=== PATIENT | male | born 1955 | race Caucasian/White ===

== ENCOUNTER 2024-07-07 08:07 | Inpatient (IN) ==
--- NOTE | 2024-06-23 12:22 | PAT Medication Instructions ---
Medication Instructions Date of Service June 23, 2024 Home Medications albuterol sulfate 90 mcg/actuation aerosol inhaler (Ventolin HFA) 2 puff inhalation QID PRN sob amiodarone 100 mg tablet 100 mg PO QAM apixaban 5 mg tablet (Eliquis) 5 mg PO BID atorvastatin 40 mg tablet 40 mg PO HS dapagliflozin propanediol 10 mg tablet (Farxiga) 10 mg PO QAM furosemide 20 mg tablet 20 mg PO BID PRN swelling metoprolol tartrate 25 mg tablet 25 mg PO QAM naloxegol 25 mg tablet (Movantik) 25 mg PO QAM oxycodone 15 mg tablet 15 mg PO QID PRN Pain potassium 20 mg chewable tablet 20 mg PO DAILY sacubitril 24 mg-valsartan 26 mg tablet (Entresto) 1 tab PO BID tamsulosin 0.4 mg capsule 0.4 mg PO HS MEDICATION INSTRUCTIONS: Continue as directed albuterol sulfate 90 mcg/actuation aerosol inhaler (Ventolin HFA) 2 puff inhalation QID PRN sob (use if needed; BRING TO HOSPITAL) ASK your prescriber and surgeon apixaban 5 mg tablet (Eliquis) 5 mg PO BID DO NOT take the morning of surgery potassium 20 mg chewable tablet 20 mg PO DAILY naloxegol 25 mg tablet (Movantik) 25 mg PO QAM furosemide 20 mg tablet 20 mg PO BID PRN swelling sacubitril 24 mg-valsartan 26 mg tablet (Entresto) 1 tab PO BID Take morning of surgery With a small sip of water, OTHERWISE NOTHING TO EAT OR DRINK AFTER MIDNIGHT: metoprolol tartrate 25 mg tablet 25 mg PO QAM amiodarone 100 mg tablet 100 mg PO QAM oxycodone 15 mg tablet 15 mg PO QID PRN Pain Take evening before surgery atorvastatin 40 mg tablet 40 mg PO HS tamsulosin 0.4 mg capsule 0.4 mg PO HS furosemide 20 mg tablet 20 mg PO BID PRN swelling oxycodone 15 mg tablet 15 mg PO QID PRN Pain Other Notes STOP taking 3 days before surgery: dapagliflozin propanediol 10 mg tablet (Farxiga) 10 mg PO QAM If you have any questions please call us at [phone] or [phone] or [phone] or [phone]
--- NOTE | 2024-06-29 14:28 | Anesthesiology Consultation ---
Date of Service June 29, 2024 Assessment & Plan (1) Encounter for pre-operative examination: - check BSG am DOS. - cardiology pre-operative evaluation 06/07/24: "...preoperative cardiac clearance...intermediate cardiovascular risk surgery...echocardiogram 04/09/23 > EF 35-40%...based on history, physical examination and the above information do not recommend further invasive or noninvasive cardiovascular testing or procedures prior to proceeding with planned lumbar surgery...optimized from a cardiac standpoint to proceed with his scheduled procedure..." - Case discussed in detail with Dr. Renee who advised that given above available information patient is at increased risk but if he is cleared by cardiology and patient is accepting of that risk he can proceed as planned at [facility]. Final discussion to anesthesiologist farrah TOLEDO. - long casas: Patient was advised on shaving facial hair. He is not agreeable to this but is agreeable to trim facial hair closely and cut casas very short. He is aware final determination on this will be to anesthesiologist farrah TOLEDO. Chart Review Chart Review: Acceptable Risk for Surgery and Patient seen in Pre Admission Testing Teaching & Discussion Pre-Anesthesia Teaching/Discussion Notes: Instructed NPO after midnight before surgery, except medications with 15 cc of water. Medication instructions provided according to the PAT guidelines. History Surgery Operation Date: 07/07/24 10:05 Proposed Procedures p L2 to S1 Revision Decompression and Fusion - Kenneth Melara DO Height/Weight Height: 6 ft Weight: 127.7 kg Allergies Allergy/AdvReac Type Severity Reaction Status Date / Time acetaminophen [From Tylenol] Allergy Unknown Rash Verified 06/15/24 13:02 morphine Allergy Unknown Rash Verified 06/15/24 13:02 Medications Home Medications Medication Instructions Recorded Confirmed Last Taken albuterol sulfate 90 mcg/actuation 2 puff inhalation QID PRN sob 06/15/24 06/15/24 Unknown aerosol inhaler (Ventolin HFA) amiodarone 100 mg tablet 100 mg PO QAM 06/15/24 06/15/24 Unknown apixaban 5 mg tablet (Eliquis) 5 mg PO BID 06/15/24 06/15/24 Unknown atorvastatin 40 mg tablet 40 mg PO HS 06/15/24 06/15/24 Unknown dapagliflozin propanediol 10 mg 10 mg PO QAM 06/15/24 06/15/24 Unknown tablet (Farxiga) furosemide 20 mg tablet 20 mg PO BID PRN swelling 06/15/24 06/15/24 Unknown metoprolol tartrate 25 mg tablet 25 mg PO QAM 06/15/24 06/15/24 Unknown naloxegol 25 mg tablet (Movantik) 25 mg PO QAM 06/15/24 06/15/24 Unknown oxycodone 15 mg tablet 15 mg PO QID PRN Pain 06/15/24 06/15/24 Unknown potassium 20 mg chewable tablet 20 mg PO DAILY 06/15/24 06/15/24 Unknown sacubitril 24 mg-valsartan 26 mg 1 tab PO BID 06/15/24 06/15/24 Unknown tablet (Entresto) tamsulosin 0.4 mg capsule 0.4 mg PO HS 06/15/24 06/15/24 Unknown Past Medical History Medical History (Updated 06/30/24 @ 14:28 by Maegan Lackey PA-C) CAD (coronary artery disease) (~2022) 1 stent, please see 11/17/22 cardiac catheterization report Chronic back pain COPD (chronic obstructive pulmonary disease) states mild; denies using inhalers Diabetes NIDDM Dyslipidemia Heart failure EF 35% HTN (hypertension) controlled, stable per pt Hx of reduction of orbital fracture metal sutures holding orbital bone Poor historian states all information sent to Dr Coulter office Patient denies h/o stroke, seizures, heart attack, heart failure, blood clots/DVTs or blood transfusions. Exercise / Class Metabolic Activity III < 4 Walking/Shop/Light housework (denies chest discomfort or shortness of breath with usual activities) Past Surgical History Surgical History H/O heart artery stent (11/26/22) History of lumbar surgery Hx of cardiac catheterization (11/26/22) SOB x 1 stent JACOB manzanares w/ Dr Luu Hx of cervical spine surgery full ROM Hx of hernia repair Past Anesthesia History No Hx of Anesthesia Complications and No Family Hx of Anesthesia Complications History of PONV No Hx of PONV and No Hx of Motion Sickness Social History Smoking Status: Former smoker Do You Dip or Chew Tobacco: No Smoking End Date: quit 04/2024 Hx Alcohol Use: No Hx Substance Use: No substance use type: does not use Review of Systems Patient denies chest pain, shortness of breath, dyspnea on exertion, snoring, witnessed apneas, reflux, fever, chills, cough, wheezing, or palpitations. Physical Exam Vital Signs Vitals BP 123/82 P 70 TEMP 97.7 SP02 94% on RA RESP 18 Physical Patient resting comfortably in chair in no acute distress, alert and oriented, responding appropriately throughout visit Full cervical extension range of motion without pain TMD 3.5 finger breadths Mallampati Score 3 Dentition: intact, denies chipped or loose teeth, caps/crowns, implants or bridges Lungs: normal respiratory effort. Good air movement, clear throughout to auscultation, no adventitious breath sounds Cardiac: regular rate and rhythm, no murmurs noted Carotid arteries: negative bruit bilat Lab Results Anesthesia Preop Results Results Anesthesia Widget: PT 10.2 Seconds (9.0-12.0) 06/29/24 PTT 31 Seconds (21-31) 06/29/24 INR 0.9 (0.9-1.1) 06/29/24 Urine Color Yellow 06/29/24 Urine Appearance Clear (Clear) 06/29/24 Urine pH 5.5 (4.5-7.5) 06/29/24 Urine Specific [place] 1.030 (1.000-1.030) 06/29/24 Urine Protein Negative (Negative) 06/29/24 Urine Glucose (UA) 3+ (Negative) H 06/29/24 Urine Ketones Negative (Negative) 06/29/24 Urine Blood Negative (Negative) 06/29/24 Urine Nitrite Negative (Negative) 06/29/24 Urine Bilirubin Negative (Negative) 06/29/24 Urine Urobilinogen Negative (Negative) 06/29/24 Urine Leukocyte Esterase Negative (Negative) 06/29/24 Blood Type A Positive 06/29/24 Antibody Screen NEGATIVE 06/29/24 Testing Laboratory Results 05/08/24 WBC: 11.5 H/H: 14/46 PLATELETS: 240,000 SODIUM: 136 POTASSIUM: 3.7 CHLORIDE: 101 CO2: 29 BUN: 11 CREATININE: 0.9 GLUCOSE: 104 A1c: 5.9% Electrocardiogram Date: 06/29/24 NSR with sinus arrhythmia, rate 61 bpm Chest X-Ray Date: 06/29/24 No acute cardiopulmonary findings. Cardiomegaly. Echocardiogram Date: 04/09/23 EF 35-40% Global hypokinesis Mildly dilated LA Mild mitral regurgitation Mild tricuspid regurgitation Cardiac Catheterization Date: 11/17/22 Severe LV systolic dysfunction EF 20% Multivessel CAD LAD proximal 70% LCx proximal 60%, distal 80% RCA proximal 90% [place] revascularization strategy would be CABG, however the patient would be a poor candidate for this operation given chronic back pain, opiate dependence and difficulty with compliance
[2024-07-07] MEDS: LR 15ML/HR IV SCH (09:13)
[2024-07-07] MEDS: LR 60ML/HR IV SCH (09:13)
[2024-07-07] MEDS: CeleBREX 200 MG CAP PO SCH (09:14)
[2024-07-07] MEDS: GABAPENTIN 300 MG CAP PO SCH (09:14)
[2024-07-07] MEDS ORDERED: LIDOCAINE 2% 2 ML VIAL/AMP(20MG/ML) INFIL ONE (09:40)
[2024-07-07] MEDS ORDERED: PROPOFOL IV EMULSION 10 MG/ML 20 ML VIAL IV ONE (09:40)
[2024-07-07] MEDS ORDERED: MIDAZOLAM HCL 1 MG/ML 2ML VIAL ONE (09:40)
[2024-07-07] MEDS ORDERED: fentaNYL citrate PF 100 MCG/2 ML VIAL ONE ×2 (09:40→11:39)
[2024-07-07] MEDS ORDERED: ROCURONIUM BROMIDE 10 MG/ML 5 ML VIAL IV ONE ×4 (09:42→13:49)
[2024-07-07] MEDS ORDERED: ONDANSETRON INJ 2 MG/ML 2 ML VIAL ONE (09:42)
--- NOTE | 2024-07-07 10:11 | History & Physical Bridge Note ---
Date of Service July 07, 2024 History & Physical Bridge Note I have examined the patient, reviewed the History & Physical and in the interval since the performance of the History & Physical I have noted the following changes of clinical significance: no changes noted
--- NOTE | 2024-07-07 10:13 | History & Physical Report ---
Date of Service July 07, 2024 Assessment & Plan (1) Neurogenic claudication due to lumbar spinal stenosis: Plan: L2-S1 revision decompression and fusion History of Present Illness Chief Complaint: Back and bilateral leg pain Primary Care Provider: Karly Garg DO This is a 69-year-old male presents for chronic persistent back and bilateral leg pain after failing course of nonoperative care is here for surgical invention. Allergies Allergy/AdvReac Type Severity Reaction Status Date / Time acetaminophen [From Tylenol] Allergy Unknown Rash Verified 07/07/24 08:44 morphine Allergy Unknown Rash Verified 07/07/24 08:44 Home Medications Medication Instructions Recorded Confirmed Type albuterol sulfate 90 mcg/actuation 2 puff inhalation QID PRN sob 06/15/24 07/07/24 History aerosol inhaler (Ventolin HFA) amiodarone 100 mg tablet 100 mg PO QAM 06/15/24 07/07/24 History apixaban 5 mg tablet (Eliquis) 5 mg PO BID 06/15/24 07/07/24 History atorvastatin 40 mg tablet 40 mg PO HS 06/15/24 07/07/24 History dapagliflozin propanediol 10 mg 10 mg PO QAM 06/15/24 07/07/24 History tablet (Farxiga) furosemide 20 mg tablet 20 mg PO BID PRN swelling 06/15/24 07/07/24 History metoprolol tartrate 25 mg tablet 25 mg PO QAM 06/15/24 07/07/24 History naloxegol 25 mg tablet (Movantik) 25 mg PO QAM 06/15/24 07/07/24 History oxycodone 15 mg tablet 15 mg PO QID PRN Pain 06/15/24 07/07/24 History potassium 20 mg chewable tablet 20 mg PO DAILY 06/15/24 07/07/24 History sacubitril 24 mg-valsartan 26 mg 1 tab PO BID 06/15/24 07/07/24 History tablet (Entresto) tamsulosin 0.4 mg capsule 0.4 mg PO HS 06/15/24 07/07/24 History Past Med/Surg History Problem List (Updated 07/07/24 @ 10:13 by Kenneth Melara DO) Neurogenic claudication due to lumbar spinal stenosis Encounter for pre-operative examination Medical History (Updated 07/07/24 @ 10:13 by Kenneth Melara, DO) Heart failure EF 35% CAD (coronary artery disease) (~2022) 1 stent, please see 11/17/22 cardiac catheterization report Chronic back pain COPD (chronic obstructive pulmonary disease) states mild; denies using inhalers Poor historian states all information sent to Dr Coulter office Dyslipidemia HTN (hypertension) controlled, stable per pt Diabetes NIDDM Hx of reduction of orbital fracture metal sutures holding orbital bone Surgical History H/O heart artery stent (11/26/22) Hx of cardiac catheterization (11/26/22) SOB x 1 stent PH P[facility] - [place] w/ Dr Luu Hx of hernia repair Hx of cervical spine surgery full ROM History of lumbar surgery Social History Smoking Status: Former smoker Tobacco Type: Cigarettes Smoking End Date: quit 04/2024; Second Hand Exposure: No; Do You Dip or Chew Tobacco: No; Tobacco Cessation Education Requested by Patient: No Hx Alcohol Use: No Hx Substance Use: No Preferred Language: Urdu Communication Ability: Effective Mica Washer Gluer Required: No Beliefs That Will Affect Care: None Current Living Situation: Alone Other Information That Helps Us Care for You: No Feels Safe at Home: Yes Safety Concerns: Feels Safe At This Time Assistive Devices: Glasses and Walker Physical Exam Physical Exam: Patient is alert and oriented Heart regular in rhythm Lungs clear Results & Data Results & Data Vital Signs (Past 12 Hours) Vital Signs Temp Pulse Resp BP Pulse Ox O2 Del Method 07/07/24 08:52 36.4 C L 63 20 153/97 H 95 Room Air
[2024-07-07] MEDS: ceFAZolin 3000MG 3,000 MG/72.5 ML BAG IV SCH (10:46)
[2024-07-07] MEDS ORDERED: DEXAMETHASONE SOD INJ 4 MG/ML VIAL ONE (11:03)
[2024-07-07] MEDS: BUPIVACAINE/EPINEPHRINE 0.25% 1:200,000 30 ML VIAL ONE (11:31)
[2024-07-07] MEDS: ceFAZolin 330 MG/ML 1 GM VIAL ONE (11:31)
[2024-07-07] MEDS: FLOSEAL HEMOSTATIC MATRIX 10ML TOP ONE (14:11)
[2024-07-07] MEDS ORDERED: SUGAMMADEX SODIUM 200 MG/2 ML VIAL IV ONE ×2 (14:14→14:23)
--- NOTE | 2024-07-07 14:33 | Operative Report ---
Post Operative Report Pre & Post Diagnosis Operation Date: 07/07/24 10:05 Pre-Op Diagnosis: Lumbar spinal stenosis with neurogenic claudication and radiculopathy Morbid obesity Post-Op Diagnosis: Same I identified the patient and participated in the time-out.: Yes Procedure Operation Date: 07/07/24 10:05 Actual Procedures #1 revision decompression with bilateral medial facetectomies and foraminotomies L3 3 L4 L4-L5 L5-S1. #2 posterior spinal fusion L2-S1. #3 placed posterior segmental instrumentation L2-S1. #4 interbody fusion L3-L4, L4-L5 and L5-S1. #5 placement of Spira 13 x 26 mm at L3-L4 14 x 26 mm at L4-5 and 12 x 26 mm at L5-S1. #6 placement locally harvested morselized autograft in the posterior gutters per #7 placement infuse collagen sponge combined with Koros in the posterior lateral gutters and os design interbody space. #8 application of versa wrap over the exposed dura. Surgeon Kenneth Melara, DO [employer] Sales Representative Vel Hart Estimated Blood Loss 950 Findings See Below The patient is 6 foot tall weighing over 120 kg with a BMI in excess of 38. Patient's body habitus did create significant technical difficulty with positioning exposure and the procedure itself. This combined with an EBL of greater than 950 cc would justify a modifier 22. Specimens None Indications This is a 69-year-old male presents above-mentioned diagnosis after failing course of nonoperative care is here for surgical invention. Description of Procedure Patient was met with identified informed consent obtained. Patient was then taken to the operative suite underwent intubation placed in a prone position on the Akbar table on top of the Carlos frame. All bony prominences well-padded eyes inspected to ensure no external precipice upon them. This point the lumbar spine was prepped and draped in a sterile fashion. Sharp dissection with assistance bradycardia form down to and exposing the remaining lamina transverse processes of L2 L3-L4-L5 and sacral ala bilaterally. Then performed a revision bilateral medial facetectomies and foraminotomies at L5-S1 addressing severe spinal stenosis. Then a prone approach to L for L5 then performed a revision bilateral medial facetectomies and foraminotomies and lastly L3-L4 bilateral medial facetectomies and foraminotomies addressing severe subarticular and foraminal disease. Pedicle screws were then placed at L2 L3-L4-L5 and S1 levels bilaterally with assistance of fluoroscopy. By way of transforaminal approach on the left complete discectomy of L5-S1 was performed endplates guarded to subcortical bleeding bone and the 12 x 26 mm spiral cage filled with os design tapped in position. Then proceeded to L4-L5. By way of transforaminal approach on the left complete discectomy performed endplates guided to subcortical mean bone and a 14 x 26 mm Spira cage filled with os designed tapped into position. Lastly I approached L3-L4 by way of transforaminal approach on the left. A complete discectomy was performed endplates. To subcortical mean bone and a 13 x 26 mm Spira cage filled with os design tapped into position. The rods then compressed locked into final position bilaterally. The transverse processes of L2-L3 L4-5 and the sacral ala burred to subcortical bleeding bone. Infuse collagen sponge combined with Koros and local autograft placed in the posterior lateral gutters. Versa wrap was placed over the exposed dura. 15 round FRANCO drain inserted. Incision then closed with 1 Vicryl fascia 2-0 Vicryl subcutaneously and 4 Monocryl for final skin closure. Steri-Strips sterile dressing placed. Patient waken taken to PACU stable condition. Please note Vel Hart was present at the entire procedure and while the patient positioning complex portions of the surgery and final skin closure. Im ordering 20 grams of Triple Liberty Collagen Powder ([employer] [id number]) to treat an incision wound that was caused by a spine procedure. The incision is approximately 2 cm(W) x 4 cm(L) into the joint (D) in size and is a full thickness wound. Triple Liberty collagen comes in 1 gram packets so 20 packets were ordered. Given the size of the wound, with light to moderate exudate I chose to order a 20 day supply. The patient will be provided instructions for proper application of the collagen wound kit. The patient will be asked to apply the collagen powder daily and then cover it with sterile dressings dispensed. Collagen was selected as I expect the collagen to attract monocytes and fibroblasts, act as a sacrificial substrate for MMPs, and ultimately proved a matrix for tissue and vessel growth. The collagen will act as a primary dressing in this scenario. It is medically necessary for proper healing of these wounds to improve bioavailability and contact with each wound surface, this is also to help prevent infection of wounds and promote healing ultimately leading to a better healing outcome and limit the risk of infection. I attest to the content of the Intraoperative Record and any orders documented therein. Any exceptions are noted below.
--- NOTE | 2024-07-07 14:47 | Fluoroscopy Report ---
FL lumbar spine 2-3V CLINICAL HISTORY: L2-S1 DECOMPRESSION AND FUSION COMPARISON STUDY: None FLUOROSCOPY TIME: 41.2 seconds FLUOROSCOPY IMAGES: 4 EXPOSURE DOSE: 34.08 mGy FINDINGS: Laminectomy and posterior interbody katarzyna and screw fusion hardware is noted at what appears to be the L2-S1 levels. The visualized hardware appears intact. IMPRESSION: Fluoroscopic assistance as above. ACT 112: Negative or not required by law. Electronically signed by: Nakul Hutton M.D. 07/07/2024 2:46 PM
[2024-07-07] MEDS ORDERED: LABETALOL HCL IV 5 MG/ML 20ML IV PRN (15:06)
[2024-07-07] MEDS ORDERED: ATROPINE SULFATE 0.1 MG/ML 10ML SYR IV PRN (15:06)
[2024-07-07] MEDS ORDERED: ONDANSETRON INJ 2 MG/ML 2 ML VIAL IV PRN ×2 (15:06→16:46)
[2024-07-07] MEDS ORDERED: PROMETHAZINE HCL 6.25 MG in SODIUM CHLORIDE 0.9% 50 ML IV PRN (15:06)
[2024-07-07] MEDS: HYDROmorphone INJ 1 MG/ML SYRINGE IV PRN ×2 (15:11→17:22)
[2024-07-07] MEDS: fentaNYL citrate PF 100 MCG/2 ML VIAL ONE (15:14)
[2024-07-07] MEDS: HYDROmorphone INJ 1 MG/ML SYRINGE ONE (15:18)
[2024-07-07] MEDS: HYDROmorphone INJ 0.5 MG/0.5 ML SYR IV PRN (15:31)
[2024-07-07] MEDS: HYDROmorphone INJ 2 MG/ML SYR/VIAL ONE (15:33)
[2024-07-07] MEDS: HYDROmorphone INJ 0.5 MG/0.5 ML SYR IV STA (15:35)
[2024-07-07] MEDS ORDERED: ALUMINUM/MAGNESIUM SUSP 30 ML UDC PO PRN (16:46)
[2024-07-07] MEDS ORDERED: ALBUTEROL HFA 8 GM INHALER INH PRN (16:46)
[2024-07-07] MEDS ORDERED: METOCLOPRAMIDE HCL INJ 5 MG/ML 2 ML VIAL IV PRN (16:46)
[2024-07-07] MEDS ORDERED: diphenhydrAMINE Capsule 25 MG CAP PO PRN (16:46)
[2024-07-07] MEDS ORDERED: DO NOT ADMINISTER PNEUMOCOCCAL VACCINE PRN (16:46)
[2024-07-07] MEDS ORDERED: LORazepam 2 MG/1 ML VIAL IV PRN (16:46)
[2024-07-07] MEDS ORDERED: hydrOXYzine HCl 25 MG TAB PO PRN (16:46)
[2024-07-07] MEDS ORDERED: DO NOT ADMINISTER FLU VACCINE PRN (16:46)
[2024-07-07] MEDS ORDERED: ONDANSETRON 4 MG OD TAB PO PRN (16:46)
[2024-07-07] MEDS ORDERED: SOD PHOSPHATE/SOD BIPHOSPHATE ENEMA 132 ML BTL PR PRN (16:46)
[2024-07-07] MEDS ORDERED: bisacodyL 10 MG SUPP PR PRN (16:46)
[2024-07-07] MEDS ORDERED: PROMETHAZINE 12.5 MG/50.5 ML BAG IV PRN (16:46)
[2024-07-07] MEDS ORDERED: MAGNESIUM HYDROXIDE SUSP 30 ML UDC PO PRN (16:46)
[2024-07-07] MEDS ORDERED: NALOXONE HCL 0.4 MG/1 ML VIAL/CARP IV PRN (16:46)
--- NOTE | 2024-07-07 16:54 | Anesthesiology Progress Note ---
Date of Service July 07, 2024 Anesthesia Post Procedure Vital Signs Vital Signs: Temp Pulse Pulse Resp BP Pulse Ox O2 Del Method 07/07/24 16:49 36.6 C 75 18 109/66 95 Nasal Cannula 07/07/24 16:25 76 19 105/58 L 92 Nasal Cannula 07/07/24 16:15 37 C 72 22 105/63 95 Nasal Cannula 07/07/24 16:05 75 20 104/60 93 Nasal Cannula 07/07/24 15:55 78 24 95 Oxymask 07/07/24 15:45 73 23 117/70 93 Oxymask 07/07/24 15:35 75 21 104/39 L 96 Oxymask 07/07/24 15:25 76 16 158/91 H 98 Oxymask 07/07/24 15:15 78 20 167/100 H 98 Oxymask 07/07/24 15:05 82 23 144/93 H 96 Oxymask 07/07/24 14:55 36.1 C L 75 24 145/104 H 95 Oxymask 07/07/24 08:52 36.4 C L 63 20 153/97 H 95 Room Air O2 Flow Rate 07/07/24 16:49 2 07/07/24 16:25 3 07/07/24 16:15 3 07/07/24 16:05 3 07/07/24 15:55 5 07/07/24 15:45 5 07/07/24 15:35 10 07/07/24 15:25 10 07/07/24 15:15 10 07/07/24 15:05 10 07/07/24 14:55 10 07/07/24 08:52 Pain Intensity Back: Pain Intensity: 6 Transfer of Care Handoff Completed per policy Notes Mental Status: alert / awake / arousable Patient Amnestic to Procedure: Yes Nausea / Vomiting: adequately controlled Pain: adequately controlled Airway Patency, RR, SpO2: stable & adequate BP & HR: stable & adequate Hydration State: stable & adequate Anesthetic Complications: no major complications apparent
[2024-07-07] MEDS: LACTATED RINGER'S 1,000 ML IV SCH (17:24)
--- NOTE | 2024-07-07 17:29 | Hospitalist Consultation ---
Date of Consultation July 07, 2024 Assessment & Plan (1) S/P spinal surgery: This is a 69yo M with a PMH of HFrEF (EF 35-40% per 03/2023 echo), paroxysmal atrial fibrillation on Eliquis, CAD status post proximal RCA stent, HTN, BPH and other medical problems listed below who is POD #0 s/p revision decompression and posterior spinal fusion L3-S1 by Dr. Melara. POD #0 s/p #1 revision decompression with bilateral medial facetectomies and foraminotomies L3 3 L4 L4-L5 L5-S1. #2 posterior spinal fusion L2-S1. #3 placed posterior segmental instrumentation L2-S1. #4 interbody fusion L3-L4, L4-L5 and L5-S1. #5 placement of Spira 13 x 26 mm at L3-L4 14 x 26 mm at L4-5 and 12 x 26 mm at L5-S1. #6 placement locally harvested morselized autograft in the posterior gutters per #7 placement infuse collagen sponge combined with Koros in the posterior lateral gutters and os design interbody space. #8 application of versa wrap over the exposed dura by Dr. Melara Per ortho for pain control, wound care, anticoagulation and activities Monitor H&H - no pre-op labs available on EMR, will obtain H&H now given EBL 950 ml Continue incentive spirometry, PT/OT when appropriate Daily CBC (2) HFrEF (heart failure with reduced ejection fraction): Follows with [facility], seen for cardiac clearance Last 2D echo from March 2023 with EF 35-40% Monitor fluid status carefully, reduced fluid rate Continue Lopressor, Entresto Hold AM lasix until volume status reassessed tomorrow (3) Paroxysmal atrial fibrillation: Continue Lopressor, amiodarone Held Eliquis 72 hrs pre-op Resume as soon as advised in post op setting at discretion of surgeon (4) CAD (coronary artery disease): H/o Prox RCA stent in 10/2022 Stable, no CP Continue beta sandoval, statin (5) DM (diabetes mellitus), type 2: A1c unknown, ordered with AM labs Hold home agents SSI while in-patient BSG AC HS (6) HTN (hypertension): Normotensive. Continue home Entresto, Lopressor (7) BPH (benign prostatic hyperplasia): Continue tamsulosin (8) Dyslipidemia: Continue statin DVT Ppx: SCDs for now Code status: FULL PCP: [facility] ([facility]) Dispo: Per primary service Patient seen in collaboration with Dr. Frederick. Please see addendum. I spent a total of 60 minutes coordinating, documenting, and providing care for this patient excluding time spent in the performance of separately billed services. Thank you for this consultation. We will follow the patient with you during their hospital stay. You can reach a member of the [facility] 10/05 via [employer]. Supervising Physician Co-Signing Physician Notes Pt was seen and examined by myself, Nikki Frederick MD on the day of service. Care was coordinated with Kasey Moreland PA-C. Patient was seen postop pain 12/18 bed 1. He is status post L2-S1 revision decompression and fusion for neurogenic claudication due to lumbar spinal stenosis. On exam patient states that he is in pain, asking for pain meds. Laying on his right side, difficulty with movements at the time of the exam. Denied any dizziness or shortness of breath. Just reiterating that he is in pain. Noted EBL of 950 mL, baseline hemoglobin ordered today, follow-up with a.m. CBC Otherwise as above. I spent a total [id number] coordinating, documenting, and providing care for this patient excluding time spent in the performance of separately billed services History of Present Illness Reason for Consultation: post op med mgmt Attending Physician: Kenneth Melara, DO History of Present Illness This is a 69yo M with a PMH of HFrEF (EF 35-40% per 03/2023 echo), paroxysmal atrial fibrillation on Eliquis, DM II, CAD status post proximal RCA stent, HTN, BPH and other medical problems listed below who is POD #0 s/p revision decompression and posterior spinal fusion L3-S1. Patient examined in postoperative setting in room 303. Has some surgical site pain but improved after recent pain medication. Denies any pain or paresthesias in bilateral lower extremities. No fever, chills, lightheadedness, headache. No chest pain, palpitations, shortness of breath. No nausea, vomiting, abdominal pain, dysuria, diarrhea or constipation. 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 Patient is a poor historian, so history also obtained from chart review. Is on Eliquis for a fib history and has been holding since Wednesday. Allergies Allergy/AdvReac Type Severity Reaction Status Date / Time acetaminophen [From Tylenol] Allergy Unknown Rash Verified 07/07/24 08:44 morphine Allergy Unknown Rash Verified 07/07/24 08:44 Home Medications Medication Instructions Recorded Confirmed Type albuterol sulfate 90 mcg/actuation 2 puff inhalation QID PRN sob 06/15/24 07/07/24 History aerosol inhaler (Ventolin HFA) amiodarone 100 mg tablet 100 mg PO QAM 06/15/24 07/07/24 History apixaban 5 mg tablet (Eliquis) 5 mg PO BID 06/15/24 07/07/24 History atorvastatin 40 mg tablet 40 mg PO HS 06/15/24 07/07/24 History dapagliflozin propanediol 10 mg 10 mg PO QAM 06/15/24 07/07/24 History tablet (Farxiga) furosemide 20 mg tablet 40 mg PO DAILY 06/15/24 07/07/24 History metoprolol tartrate 25 mg tablet 25 mg PO QAM 06/15/24 07/07/24 History naloxegol 25 mg tablet (Movantik) 25 mg PO QAM 06/15/24 07/07/24 History oxycodone 15 mg tablet 15 mg PO QID PRN Pain 06/15/24 07/07/24 History potassium 20 mg chewable tablet 20 mg PO DAILY 06/15/24 07/07/24 History sacubitril 24 mg-valsartan 26 mg 1 tab PO BID 06/15/24 07/07/24 History tablet (Entresto) tamsulosin 0.4 mg capsule 0.4 mg PO HS 06/15/24 07/07/24 History Patient History Medical History (Updated 07/07/24 @ 18:03 by Kasey Moreland PA-C) BPH (benign prostatic hyperplasia) Paroxysmal atrial fibrillation DM (diabetes mellitus), type 2 HFrEF (heart failure with reduced ejection fraction) CAD (coronary artery disease) (~2022) 1 stent, please see 11/17/22 cardiac catheterization report Chronic back pain COPD (chronic obstructive pulmonary disease) states mild; denies using inhalers Poor historian states all information sent to Dr Coulter office Dyslipidemia HTN (hypertension) controlled, stable per pt Hx of reduction of orbital fracture metal sutures holding orbital bone Surgical History H/O heart artery stent (11/26/22) Hx of cardiac catheterization (11/26/22) SOB x 1 stent PH [facility] w/ Dr Luu Hx of hernia repair Hx of cervical spine surgery full ROM History of lumbar surgery Family History Other Heart disease Social History Smoking Status: Never smoker Tobacco Type: Cigarettes Smoking End Date: quit 04/2024; Second Hand Exposure: No; Do You Dip or Chew Tobacco: No; Tobacco Cessation Education Requested by Patient: No Hx Alcohol Use: No Hx Substance Use: No Preferred Language: Frisian Communication Ability: Effective House Coordinator Required: No Beliefs That Will Affect Care: None Current Living Situation: Alone Other Information That Helps Us Care for You: No Feels Safe at Home: Yes Safety Concerns: Feels Safe At This Time Assistive Devices: Walker Review of Systems Review of Systems: At least ten systems reviewed and negative except as noted in the HPI. Physical Exam Physical Exam: Gen: WD/WN, NAD, laying in bed, A&Ox3, morbidly obese HEENT: Normocephalic, atraumatic, mucous membranes moist Lung: Clear to Auscultation bilaterally Heart: Regular rate, regular rhythm Abdomen: Soft, NT, ND +BS x 4 Extremities: + Spinal dressing c/d/i, + drain, no BLE edema, BLE strength 5/5 : + Bolanos Skin: Warm, no rash Results & Data Results & Data Vital Signs (Past 12 Hours) Vital Signs Temp Pulse Pulse Resp BP Pulse Ox O2 Del Method 07/07/24 16:49 36.6 C 75 18 109/66 95 Nasal Cannula 07/07/24 16:40 36.6 C 75 18 109/66 95 Room Air 07/07/24 16:25 76 19 105/58 L 92 Nasal Cannula 07/07/24 16:15 37 C 72 22 105/63 95 Nasal Cannula 07/07/24 16:05 75 20 104/60 93 Nasal Cannula 07/07/24 15:55 78 24 95 Oxymask 07/07/24 15:45 73 23 117/70 93 Oxymask 07/07/24 15:35 75 21 104/39 L 96 Oxymask 07/07/24 15:25 76 16 158/91 H 98 Oxymask 07/07/24 15:15 78 20 167/100 H 98 Oxymask 07/07/24 15:05 82 23 144/93 H 96 Oxymask 07/07/24 14:55 36.1 C L 75 24 145/104 H 95 Oxymask 07/07/24 08:52 36.4 C L 63 20 153/97 H 95 Room Air O2 Flow Rate 07/07/24 16:49 2 07/07/24 16:40 07/07/24 16:25 3 07/07/24 16:15 3 07/07/24 16:05 3 07/07/24 15:55 5 07/07/24 15:45 5 07/07/24 15:35 10 07/07/24 15:25 10 07/07/24 15:15 10 07/07/24 15:05 10 07/07/24 14:55 10 07/07/24 08:52 Diagnostic Findings Lumbar Spine X-Ray 07/07/24 10:05 FL lumbar spine 2-3V CLINICAL HISTORY: L2-S1 DECOMPRESSION AND FUSION COMPARISON STUDY: None FLUOROSCOPY TIME: 41.2 seconds FLUOROSCOPY IMAGES: 4 EXPOSURE DOSE: 34.08 mGy FINDINGS: Laminectomy and posterior interbody katarzyna and screw fusion hardware is noted at what appears to be the L2-S1 levels. The visualized hardware appears intact. IMPRESSION: Fluoroscopic assistance as above. ACT 112: Negative or not required by law. Electronically signed by: Nakul Hutton M.D. 07/07/2024 2:46 PM
[2024-07-07] MEDS ORDERED: GLUCOSE 10 TAB/TUBE PO PRN (17:54)
[2024-07-07] MEDS ORDERED: PHARMACY GLYCEMIC MGMT CONSULT PRN (17:54)
[2024-07-07] MEDS ORDERED: GLUCAGON FOR INJ 1 MG VIAL SQ PRN (17:54)
[2024-07-07] MEDS ORDERED: CARBOHYDRATES FOR HYPOGLYCEMIA PO PRN (17:54)
[2024-07-07] MEDS ORDERED: DEXTROSE 50% 50 ML SYRINGE IV PRN (17:54)
[2024-07-07] MEDS ORDERED: GLUCOSE 40% GEL 15 GM TUBE PO PRN (17:54)
[2024-07-07] MEDS: ceFAZolin 2000MG 2,000 MG/15 ML SYR IV SCH (18:26)
[2024-07-07] MEDS: oxyCODONE HCL IR 5 MG TAB (IMMEDIATE RELEASE) PO PRN (18:45)
[2024-07-07 19:15] LABS: Hematocrit (blood only) 38.7 % (42.0-52.0); Hemoglobin 12.7 g/dl (14.0-18.0)
[2024-07-07] MEDS: VALSARTAN/SACUBITRIL 26/24MG TAB PO SCH (20:19)
[2024-07-07] MEDS: DOCUSATE SODIUM/SENNA 50/8.6MG TAB PO SCH (20:20)
[2024-07-07] MEDS: ATORVASTATIN 40 MG TAB PO SCH (20:20)
[2024-07-07] MEDS: TAMSULOSIN HCL 0.4 MG CAP PO SCH (20:21)
[2024-07-07] MEDS: INSULIN ASPART PER UNIT CHARGE SC SCH (21:10)
[2024-07-07] MEDS: LORazepam 0.5 MG TAB PO PRN (21:50)
[2024-07-08] MEDS: POLYETHYLENE (MIRALAX) 17 GM PACK PO SCH (05:09)
[2024-07-08 06:33] LABS: Basophils # (auto) 0.03 K/uL (0.00-0.20); Basophils % (auto) 0.2 %; Eosinophils # (auto) 0.02 K/uL (0.00-0.50); Eosinophils % (auto) 0.1 %; Hematocrit (blood only) 35.6 % (42.0-52.0); Hemoglobin 11.5 g/dl (14.0-18.0); Immature Granulocytes # (auto) 0.11 K/uL (0.01-0.20); Immature Granulocytes % (auto) 0.7 %; Lymphocytes # (auto) 1.57 K/uL (1.20-3.40); Mean Corpuscular Hemoglobin 26.9 pg (25.0-34.0); Mean Corpuscular Hgb Conc 32.3 g/dL (32.0-36.0); Mean Corpuscular Volume 83.2 fL (80.0-100.0); Mean Platelet Volume 11.6 fL (9.4-12.4); Monocytes # (auto) 1.43 K/uL (0.11-0.59); Monocytes % (auto) 9.1 %; Neutrophils # (auto) 12.57 K/uL (1.40-6.50); Neutrophils % (auto) 79.9 %; Platelet Count 192 K/uL (130-400); RDW Coefficient of Variation 15.2 % (11.5-14.5); RDW Standard Deviation 46.4 fL (36.4-46.3); Red Blood Count 4.28 M/uL (4.70-6.10); White Blood Count 15.73 K/ul (4.8-10.8)
[2024-07-08 07:03] LABS: Anion Gap 5 (3-11); BUN Creatinine Ratio 24.6 (10-20); Blood Urea Nitrogen 16 mg/dl (6-23); Calcium 7.9 mg/dl (8.6-10.3); Carbon Dioxide 27 mmol/L (21-32); Chloride 102 mmol/L (98-107); Creatinine Clr Calc Pharmacy 144.7 ml/min; Est GFR (African American) 113.4 ml/min; Est GFR (Non-African American) 97.9 ml/min; Glucose 141 mg/dl (70-99(Fasting)); Sodium 134 mmol/L (136-145)
[2024-07-08 07:41] LABS: Estimated Average Glucose 140 mg/dl; Hemoglobin A1C 6.5 % (4.5-5.6)
[2024-07-08] MEDS: METOPROLOL TARTRATE 25 MG TAB PO SCH (08:07)
[2024-07-08] MEDS: AMIODARONE 200 MG TAB PO SCH (08:08)
[2024-07-08] MEDS: dexAMETHasone 6 MG in SYRINGE 0 ML IV SCH (08:10)
[2024-07-08] MEDS ORDERED: POTASSIUM 20 MG PO SCH (09:00)
--- NOTE | 2024-07-08 09:46 | Orthopedic Progress Note ---
Date of Service July 08, 2024 Assessment & Plan (1) Neurogenic claudication due to lumbar spinal stenosis: Plan: At this point I will add OxyContin twice daily. He has been on long-term oxycodone and has a bit of resistance. Will initiate physical therapy today. Hopefully discharge home in the next few days. Admission and Anticipated Discharge Date Admission Date: July 07, 2024 Subjective Back pain poorly controlled leg pain markedly improved Physical Exam Physical Exam: Patient is constricted testing. Results & Data Vital Signs (Past 12 Hours) Vital Signs Temp Pulse Resp BP BP Pulse Ox O2 Del Method 07/08/24 08:06 36.6 C 94 H 18 115/73 98 Room Air 07/08/24 02:15 36.7 C 82 18 107/63 95 Room Air 07/07/24 23:12 36.6 C 78 16 93/54 L 94 Nasal Cannula O2 Flow Rate 07/08/24 08:06 07/08/24 02:15 07/07/24 23:12 2 Queries Orthopedic Spine Acute Posthemorrhagic Anemia: Yes Obesity: Yes
[2024-07-08] MEDS: oxyCODONE HCL 20 MG TABCR (OxyCONTIN) PO SCH (10:27)
--- NOTE | 2024-07-08 16:19 | Hospitalist Progress Note ---
Date of Service July 08, 2024 Assessment & Plan (1) S/P spinal surgery: Plan: This is a 69yo M with a PMH of HFrEF (EF 35-40% per 03/2023 echo), paroxysmal atrial fibrillation on Eliquis, CAD status post proximal RCA stent, HTN, BPH and other medical problems listed below who is POD #1 s/p revision decompression and posterior spinal fusion L3-S1 by Dr. Melara. POD #1 s/p #1 revision decompression with bilateral medial facetectomies and foraminotomies L3 3 L4 L4-L5 L5-S1. #2 posterior spinal fusion L2-S1. #3 placed posterior segmental instrumentation L2-S1. #4 interbody fusion L3-L4, L4-L5 and L5-S1. #5 placement of Spira 13 x 26 mm at L3-L4 14 x 26 mm at L4-5 and 12 x 26 mm at L5-S1. #6 placement locally harvested morselized autograft in the posterior gutters per #7 placement infuse collagen sponge combined with Koros in the posterior lateral gutters and os design interbody space. #8 application of versa wrap over the exposed dura by Dr. Melara Per ortho for pain control, wound care, anticoagulation and activities Continue incentive spirometry, PT/OT ordered (2) Acute postoperative anemia due to expected blood loss: Plan: Monitor H&H - 12.7immediately post op to 11.5 this am Repeat CBC , transfuse <7 (3) HFrEF (heart failure with reduced ejection fraction): Plan: Follows with [facility], seen for cardiac clearance Last 2D echo from March 2023 with EF 35-40% Monitor fluid status carefully, reduced fluid rate Continue Lopressor, Entresto Resume AM lasix (4) Paroxysmal atrial fibrillation: Plan: Continue Lopressor, amiodarone Held Eliquis 72 hrs pre-op Resume as soon as advised in post op setting at discretion of surgeon (5) CAD (coronary artery disease): Plan: H/o Prox RCA stent in 10/2022 Stable, no CP Continue beta sandoval, statin (6) DM (diabetes mellitus), type 2: Plan: A1c unknown, ordered with AM labs Hold home agents SSI while in-patient BSG AC HS (7) HTN (hypertension): Plan: Normotensive. Continue home Entresto, Lopressor (8) BPH (benign prostatic hyperplasia): Plan: Continue tamsulosin (9) Dyslipidemia: Plan: Continue statin DVT Ppx: SCDs for now Code status: FULL PCP: [facility] ([facility]) Dispo: Per primary service Thank you for this consultation. We will follow the patient with you during their hospital stay. You can reach a member of the [facility] Hospitalist Team 10/05 via [email or web address]. Admission and Anticipated Discharge Date Admission Date: July 07, 2024 Subjective Reports excitement with the resolution of leg pain, but notes post-op discomfort Otherwise agreeable for morris removal Physical Exam Constitutional: WD/WN, vitals as above Respiratory: normal respiratory effort, lungs clear to auscultation Cardiovascular: RRR, no murmur, no edema Gastrointestinal (Abdomen): normal bowel sounds, soft, nontender, no hepatosplenomegaly FRANCO drain with sanginous fluid Results & Data Results & Data Vital Signs (Past 12 Hours) Vital Signs Temp Pulse Resp BP BP Pulse Ox O2 Del Method 07/08/24 14:51 36.5 C 71 16 100/60 92 Room Air 07/08/24 09:30 Room Air 07/08/24 08:06 36.6 C 94 H 18 115/73 98 Room Air Laboratory Results Short CBC 07/07/24 07/08/24 Range/Units 18:21 05:30 WBC 15.73 H (4.8-10.8) K/ul Hgb 12.7 L 11.5 L (14.0-18.0) g/dl Hct 38.7 L 35.6 L (42.0-52.0) % Plt Count 192 (130-400) K/uL BMP 07/08/24 07/08/24 05:30 08:14 Sodium 134 L Potassium TNP 4.1 Chloride 102 Carbon Dioxide 27 BUN 16 Creatinine 0.65 Glucose 141 H Calcium 7.9 L Medications Administered Home Medications Medication Instructions Recorded Confirmed Last Taken albuterol sulfate 90 mcg/actuation 2 puff inhalation QID PRN sob 06/15/24 07/07/24 Unknown aerosol inhaler (Ventolin HFA) amiodarone 100 mg tablet 100 mg PO QAM 06/15/24 07/07/24 07/07/24 06:30 apixaban 5 mg tablet (Eliquis) 5 mg PO BID 08/07/07/24 07/03/24 atorvastatin 40 mg tablet 40 mg PO HS 06/15/24 07/07/24 07/06/24 00:30 dapagliflozin propanediol 10 mg 10 mg PO QAM 06/15/24 07/07/24 07/03/24 tablet (Farxiga) furosemide 20 mg tablet 40 mg PO DAILY 06/15/24 07/07/24 07/06/24 20:00 metoprolol tartrate 25 mg tablet 25 mg PO QAM 06/15/24 07/07/24 07/07/24 06:30 naloxegol 25 mg tablet (Movantik) 25 mg PO QAM 06/15/24 07/07/24 Unknown oxycodone 15 mg tablet 15 mg PO QID PRN Pain 06/15/24 07/07/24 07/07/24 06:30 potassium 20 mg chewable tablet 20 mg PO DAILY 06/15/24 07/07/24 07/06/24 08:00 sacubitril 24 mg-valsartan 26 mg 1 tab PO BID 06/15/24 07/07/24 07/02/24 tablet (Entresto) tamsulosin 0.4 mg capsule 0.4 mg PO HS 06/15/24 07/07/24 07/06/24 20:00 Active Medications Generic Name Dose Route Start Last Admin Trade Name Freq PRN Reason Stop Dose Admin Amiodarone HCl 100 mg 07/08/24 09:00 07/08/24 08:08 Amiodarone 200 Mg Tab PO 08/07/24 08:59 100 mg QAM ITALIA Administration Atorvastatin Calcium 40 mg 07/07/24 21:00 07/07/24 20:20 Atorvastatin 40 Mg Tab PO 08/06/24 20:59 40 mg HS ITALIA Administration Hydromorphone HCl 1 mg 07/07/24 16:46 07/08/24 08:50 Hydromorphone Inj 1 Mg/Ml Syringe IV 07/21/24 16:45 1 mg Q3H PRN Administration SEVERE Pain (Scale 7,8,9,10) Dexamethasone 6 mg/ Syringe 1.5 mls @ 1 mls/min 07/08/24 09:00 07/08/24 08:10 IV 07/10/24 09:02 1 mls/min DAILY ITALIA Administration Insulin Aspart 0 units 07/07/24 21:00 07/08/24 12:14 Insulin Aspart Per Unit Charge SC 08/06/24 20:59 6 units ACHS ITALIA Administration Lorazepam 0.5 mg 07/07/24 16:46 07/08/24 08:04 Lorazepam 0.5 Mg Tab PO 08/06/24 16:45 0.5 mg Q8H PRN Administration Sedation/Anxiety Metoprolol Tartrate 25 mg 07/08/24 09:00 07/08/24 08:07 Metoprolol Tartrate 25 Mg Tab PO 08/07/24 08:59 25 mg QAM ITALIA Administration Oxycodone HCl 5 - 10 mg 07/07/24 16:46 07/08/24 16:15 Oxycodone Hcl Ir 5 Mg Tab (Immediate Release) PO 07/21/24 16:45 10 mg Q4H PRN Administration Pain & Pre PT Oxycodone HCl 20 mg 07/08/24 10:00 07/08/24 10:27 Oxycodone Hcl 20 Mg Tabcr (Oxycontin) PO 07/22/24 09:59 20 mg Q12H ITALIA Administration Polyethylene Glycol 17 gm 07/08/24 06:00 07/08/24 12:15 Polyethylene (Miralax) 17 Gm Pack PO 08/07/24 05:59 Not Given Q6 ITALIA Sacubitril/Valsartan 1 tab 07/07/24 21:00 07/08/24 08:07 Valsartan/Sacubitril 26/24mg Tab PO 08/06/24 20:59 1 tab BID ITALIA Administration Senna/Docusate Sodium 2 tab 07/07/24 21:00 07/07/24 20:20 Docusate Sodium/Senna 50/8.6mg Tab PO 08/06/24 20:59 2 tab HS ITALIA Administration Tamsulosin HCl 0.4 mg 07/07/24 21:00 07/07/24 20:21 Tamsulosin Hcl 0.4 Mg Cap PO 08/06/24 20:59 0.4 mg HS ITALIA Administration
[2024-07-08] MEDS: FAMOTIDINE 20 MG TAB PO PRN (17:55)
[2024-07-09] MEDS: HYDROmorphone INJ 0.5 MG/0.5 ML SYR IV PRN (00:17)
[2024-07-09 05:54] LABS: Hematocrit (blood only) 33.1 % (42.0-52.0); Hemoglobin 10.8 g/dl (14.0-18.0); Mean Corpuscular Hemoglobin 26.9 pg (25.0-34.0); Mean Corpuscular Hgb Conc 32.6 g/dL (32.0-36.0); Mean Corpuscular Volume 82.3 fL (80.0-100.0); Mean Platelet Volume 11.8 fL (9.4-12.4); Platelet Count 168 K/uL (130-400); RDW Coefficient of Variation 15.2 % (11.5-14.5); RDW Standard Deviation 45.6 fL (36.4-46.3); Red Blood Count 4.02 M/uL (4.70-6.10); White Blood Count 11.58 K/ul (4.8-10.8)
[2024-07-09 05:58] LABS: Calcium 8.2 mg/dl (8.6-10.3); Creatinine Clr Calc Pharmacy 130.6 ml/min; Est GFR (African American) 108.8 ml/min; Est GFR (Non-African American) 93.9 ml/min; Potassium 3.7 mmol/L (3.5-5.1)
[2024-07-09 07:21] VITALS: RESP 16
[2024-07-09] MEDS: FUROSEMIDE 40 MG TAB PO SCH (08:16)
[2024-07-09] MEDS: LANTUS PER UNIT CHARGE SC SCH (09:41)
--- NOTE | 2024-07-09 09:49 | Hospitalist Progress Note ---
Date of Service July 09, 2024 Assessment & Plan (1) S/P spinal surgery: Plan: This is a 69yo M with a PMH of HFrEF (EF 35-40% per 03/2023 echo), paroxysmal atrial fibrillation on Eliquis, CAD status post proximal RCA stent, HTN, BPH and other medical problems listed below who is s/p revision decompression and posterior spinal fusion L3-S1 by Dr. Melara on 07/07. POD #2 s/p #1 revision decompression with bilateral medial facetectomies and foraminotomies L3 3 L4 L4-L5 L5-S1. #2 posterior spinal fusion L2-S1. #3 placed posterior segmental instrumentation L2-S1. #4 interbody fusion L3-L4, L4-L5 and L5-S1. #5 placement of Spira 13 x 26 mm at L3-L4 14 x 26 mm at L4-5 and 12 x 26 mm at L5-S1. #6 placement locally harvested morselized autograft in the posterior gutters per #7 placement infuse collagen sponge combined with Koros in the posterior lateral gutters and os design interbody space. #8 application of versa wrap over the exposed dura by Dr. Melara Per ortho for pain control, wound care, anticoagulation and activities Continue incentive spirometry, PT/OT ordered (2) Acute postoperative anemia due to expected blood loss: Plan: Monitor H&H - 12.7immediately post op to 10.8 this am Repeat CBC , transfuse <7 (3) HFrEF (heart failure with reduced ejection fraction): Plan: Follows with [facility], seen for cardiac clearance Last 2D echo from March 2023 with EF 35-40% Monitor fluid status carefully, reduced fluid rate Continue Lopressor, Entresto Continue lasix (4) Paroxysmal atrial fibrillation: Plan: Continue Lopressor, amiodarone Held Eliquis 72 hrs pre-op Resume as soon as advised in post op setting at discretion of surgeon (5) CAD (coronary artery disease): Plan: H/o Prox RCA stent in 10/2022 Stable, no CP Continue beta sandoval, statin (6) DM (diabetes mellitus), type 2: Plan: A1c 6.5% Hold home agents SSI while in-patient BSG AC HS (7) HTN (hypertension): Plan: Normotensive. Continue home Entresto, Lopressor (8) BPH (benign prostatic hyperplasia): Plan: Continue tamsulosin (9) Dyslipidemia: Plan: Continue statin DVT Ppx: SCDs for now Code status: FULL PCP: [facility] ([facility]) Dispo: Per primary service Thank you for this consultation. We will follow the patient with you during their hospital stay. You can reach a member of the [facility] Hospitalist Team 10/05 via [employer]. Admission and Anticipated Discharge Date Admission Date: July 07, 2024 Subjective evaluated at bedside rested on right side, reports better control of back pain compared to yesterday Denies any new concerns No bowel movement as of yet Physical Exam Constitutional: WD/WN, vitals as above Respiratory: normal respiratory effort, lungs clear to auscultation Cardiovascular: RRR, no murmur, no edema Gastrointestinal (Abdomen): large abdomen, soft nontender Results & Data Results & Data Vital Signs (Past 12 Hours) Vital Signs Temp Pulse Resp BP Pulse Ox O2 Del Method 07/09/24 07:30 Room Air 07/09/24 07:20 36.7 C 85 16 126/64 93 Room Air Laboratory Results Short CBC 07/09/24 Range/Units 05:16 WBC 11.58 H (4.8-10.8) K/ul Hgb 10.8 L (14.0-18.0) g/dl Hct 33.1 L (42.0-52.0) % Plt Count 168 (130-400) K/uL BMP 07/09/24 05:16 Sodium 136 Potassium 3.7 Chloride 102 Carbon Dioxide 28 BUN 18 Creatinine 0.72 Glucose 139 H Calcium 8.2 L Medications Administered Home Medications Medication Instructions Recorded Confirmed Last Taken albuterol sulfate 90 mcg/actuation 2 puff inhalation QID PRN sob 06/15/24 07/07/24 Unknown aerosol inhaler (Ventolin HFA) amiodarone 100 mg tablet 100 mg PO QAM 06/15/24 07/07/24 07/07/24 06:30 apixaban 5 mg tablet (Eliquis) 5 mg PO BID 06/15/24 07/07/24 07/03/24 atorvastatin 40 mg tablet 40 mg PO HS 06/15/24 07/07/24 07/06/24 00:30 dapagliflozin propanediol 10 mg 10 mg PO QAM 06/15/24 07/07/24 07/03/24 tablet (Farxiga) furosemide 20 mg tablet 40 mg PO DAILY 06/15/24 07/07/24 07/06/24 20:00 metoprolol tartrate 25 mg tablet 25 mg PO QAM 06/15/24 07/07/24 07/07/24 06:30 naloxegol 25 mg tablet (Movantik) 25 mg PO QAM 06/15/24 07/07/24 Unknown oxycodone 15 mg tablet 15 mg PO QID PRN Pain 06/15/24 07/07/24 07/07/24 06:30 potassium 20 mg chewable tablet 20 mg PO DAILY 06/15/24 07/07/24 07/06/24 08:00 sacubitril 24 mg-valsartan 26 mg 1 tab PO BID 06/15/24 07/07/24 07/02/24 tablet (Entresto) tamsulosin 0.4 mg capsule 0.4 mg PO HS 06/15/24 07/07/24 07/06/24 20:00 Active Medications Generic Name Dose Route Start Last Admin Trade Name Freq PRN Reason Stop Dose Admin Amiodarone HCl 100 mg 07/08/24 09:00 07/09/24 08:17 Amiodarone 200 Mg Tab PO 08/07/24 08:59 100 mg QAM ITALIA Administration Atorvastatin Calcium 40 mg 07/07/24 21:00 07/08/24 20:48 Atorvastatin 40 Mg Tab PO 08/06/24 20:59 40 mg HS ITALIA Administration Famotidine 20 mg 07/07/24 16:46 07/08/24 17:55 Famotidine 20 Mg Tab PO 08/06/24 16:45 20 mg Q12H PRN Administration Dyspepsia Furosemide 40 mg 07/09/24 09:00 07/09/24 08:16 Furosemide 40 Mg Tab PO 08/08/24 08:59 40 mg QAM ITALIA Administration Hydromorphone HCl 0.5 mg 07/07/24 16:46 07/09/24 00:17 Hydromorphone Inj 0.5 Mg/0.5 Ml Syr IV 07/21/24 16:45 0.5 mg Q3H PRN Administration MODERATE Pain (Scale 4,5,6) & Pre PT Hydromorphone HCl 1 mg 07/07/24 16:46 07/09/24 08:15 Hydromorphone Inj 1 Mg/Ml Syringe IV 07/21/24 16:45 1 mg Q3H PRN Administration SEVERE Pain (Scale 7,8,9,10) Dexamethasone 6 mg/ Syringe 1.5 mls @ 1 mls/min 07/08/24 09:00 07/09/24 08:16 IV 07/10/24 09:02 1 mls/min DAILY ITALIA Administration Insulin Aspart 0 units 07/07/24 21:00 07/09/24 08:25 Insulin Aspart Per Unit Charge SC 08/06/24 20:59 10 units ACHS ITALIA Administration Insulin Glargine 10 units 07/09/24 09:30 07/09/24 09:41 Lantus Per Unit Charge SC 07/10/24 09:01 10 units DAILY ITALIA Administration Lorazepam 0.5 mg 07/07/24 16:46 07/09/24 02:22 Lorazepam 0.5 Mg Tab PO 08/06/24 16:45 0.5 mg Q8H PRN Administration Sedation/Anxiety Metoprolol Tartrate 25 mg 07/08/24 09:00 07/09/24 08:17 Metoprolol Tartrate 25 Mg Tab PO 08/07/24 08:59 25 mg QAM ITALIA Administration Oxycodone HCl 5 - 10 mg 07/07/24 16:46 07/09/24 07:27 Oxycodone Hcl Ir 5 Mg Tab (Immediate Release) PO 07/21/24 16:45 10 mg Q4H PRN Administration Pain & Pre PT Oxycodone HCl 20 mg 07/08/24 10:00 07/09/24 09:39 Oxycodone Hcl 20 Mg Tabcr (Oxycontin) PO 07/22/24 09:59 20 mg Q12H ITALIA Administration Polyethylene Glycol 17 gm 07/08/24 06:00 07/09/24 05:33 Polyethylene (Miralax) 17 Gm Pack PO 08/07/24 05:59 17 gm Q6 ITALIA Administration Sacubitril/Valsartan 1 tab 07/07/24 21:00 07/09/24 08:17 Valsartan/Sacubitril 26/24mg Tab PO 08/06/24 20:59 1 tab BID ITALIA Administration Senna/Docusate Sodium 2 tab 07/07/24 21:00 07/08/24 20:48 Docusate Sodium/Senna 50/8.6mg Tab PO 08/06/24 20:59 2 tab HS ITALIA Administration Tamsulosin HCl 0.4 mg 07/07/24 21:00 07/08/24 20:48 Tamsulosin Hcl 0.4 Mg Cap PO 08/06/24 20:59 0.4 mg HS ITALIA Administration
--- NOTE | 2024-07-09 10:05 | Orthopedic Progress Note ---
Date of Service July 09, 2024 Assessment & Plan (1) Neurogenic claudication due to lumbar spinal stenosis: Plan: At this point we will continue physical therapy monitor his FRANCO output hopefully discharge home tomorrow. Admission and Anticipated Discharge Date Admission Date: July 07, 2024 Subjective Back pain controlled leg symptoms improved Physical Exam Physical Exam: Patient is currently in bed peers comfortable. Good strength testing. Results & Data Vital Signs (Past 12 Hours) Vital Signs Temp Pulse Resp BP Pulse Ox O2 Del Method 07/09/24 07:30 Room Air 07/09/24 07:20 36.7 C 85 16 126/64 93 Room Air Queries Orthopedic Spine Acute Posthemorrhagic Anemia: Yes Obesity: Yes
--- NOTE | 2024-07-09 15:22 | Pharmacy Report ---
Pharmacy Glycemic Short Note 2 - Date of Service July 09, 2024 - Glycemic Short BSG Results (Last 24 hours): 07/08/24 07/08/24 07/09/24 16:48 20:05 05:16 Glucose 139 H POC Glucose 167 H 162 H 07/09/24 07/09/24 07:56 11:42 Glucose POC Glucose 170 H 153 H OUTPATIENT ANTIDIABETIC REGIMEN: * Farxiga daily * HbA1c 6.5% (07/08/24) ASSESSMENT: * Montez is a 69 YOM admitted status post spinal fusion with a history of T2DM. Pharmacy has been consulted to assist with glycemic management. * Received steroids preoperatively and ongoing, BSGs acceptable for at first, trending upwards, initiated low dose basal insulin this AM with IV dexamethasone 6mg daily. * Novolog initated at a weight based stress of 2, no changes at this time. PLAN FOR INPATIENT GLYCEMIC CONTROL: * Hold outpatient oral diabetes medications * Basal insulin * Lantus 10 units SQ daily with IV dexamethasone * Bolus insulin * NovoLog per scale ACHS or Q6hrs while NPO * Goal Range: Low 110 mg/dL - High 140 mg/dL * Correction Factor: 20 mg/dL/unit * Nutritional / Prandial insulin per carb ratio of 1 unit per 6 grams CHO consumed
[2024-07-10 06:18] LABS: Hematocrit (blood only) 33.5 % (42.0-52.0); Hemoglobin 10.7 g/dl (14.0-18.0); Mean Corpuscular Hemoglobin 26.7 pg (25.0-34.0); Mean Corpuscular Hgb Conc 31.9 g/dL (32.0-36.0); Mean Corpuscular Volume 83.5 fL (80.0-100.0); Mean Platelet Volume 11.4 fL (9.4-12.4); Platelet Count 185 K/uL (130-400); RDW Coefficient of Variation 15.3 % (11.5-14.5); RDW Standard Deviation 46.5 fL (36.4-46.3); Red Blood Count 4.01 M/uL (4.70-6.10); White Blood Count 13.17 K/ul (4.8-10.8)
[2024-07-10 07:28] VITALS: BP 117/75; PULSE 111; TEMP 98.2; O2SAT 97
[2024-07-10] MEDS: FUROSEMIDE 20 MG TAB PO PRN (08:23)
--- NOTE | 2024-07-10 11:19 | Hospitalist Progress Note ---
<Statement entered by Angel Greene, DO - 07/10/24 14:52> I have seen and examined the patient and have discussed the case with the provider above. I have reviewed the advanced practitioner's documentation, and I agree with, and take responsibility for that plan of care. 7 minutes spent in care and coordination of patient. Patient sitting up on edge of bed. Still up with his walker independently and transferred himself to a chair. Reports that pain is significantly improved. Plan of care as outlined below Discharge as planned by attending. Date of Service July 10, 2024 Assessment & Plan (1) S/P spinal surgery: Plan: This is a 69yo M with a PMH of HFrEF (EF 35-40% per 03/2023 echo), paroxysmal atrial fibrillation on Eliquis, CAD status post proximal RCA stent, HTN, BPH and other medical problems listed below who is s/p revision decompression and posterior spinal fusion L3-S1 by Dr. Melara on 07/07. POD #3 s/p #1 revision decompression with bilateral medial facetectomies and foraminotomies L3 3 L4 L4-L5 L5-S1. #2 posterior spinal fusion L2-S1. #3 placed posterior segmental instrumentation L2-S1. #4 interbody fusion L3-L4, L4-L5 and L5-S1. #5 placement of Spira 13 x 26 mm at L3-L4 14 x 26 mm at L4-5 a nd 12 x 26 mm at L5-S1. #6 placement locally harvested morselized autograft in the posterior gutters per #7 placement infuse collagen sponge combined with Koros in the posterior lateral gutters and os design interbody space. #8 application of versa wrap over the exposed dura by Dr. Melara Per ortho for pain control, wound care, anticoagulation and activities Continue incentive spirometry, PT/OT ordered (2) Acute postoperative anemia due to expected blood loss: Plan: Monitor H&H - 12.7immediately post op to 10.7 this am stable (3) HFrEF (heart failure with reduced ejection fraction): Plan: Follows with [facility] cardiology, seen for cardiac clearance Last 2D echo from March 2023 with EF 35-40% He is euvolemic on day of discharge Continue Lopressor, Entresto Continue lasix (4) Paroxysmal atrial fibrillation: Plan: Continue Lopressor, amiodarone Held Eliquis 72 hrs pre-op Resume as soon as advised in post op setting at discretion of surgeon (5) CAD (coronary artery disease): Plan: H/o Prox RCA stent in 10/2022 Stable, no CP Continue beta sandoval, statin (6) DM (diabetes mellitus), type 2: Plan: A1c 6.5% Hold home agents SSI while in-patient BSG AC HS (7) HTN (hypertension): Plan: Normotensive. Continue home Entresto, Lopressor (8) BPH (benign prostatic hyperplasia): Plan: Continue tamsulosin (9) Dyslipidemia: Plan: Continue statin DVT Ppx: SCDs for now Code status: FULL PCP: [facility] ([facility]) Dispo: Per primary service, possible d/c today Thank you for this consultation. We will follow the patient with you during their hospital stay. You can reach a member of the [facility] Hospitalist Team 10/05 via [employer]. A total of 42 min was spent coordinating, documenting, and providing care for this patient excluding time spent in the performance of separately billed services. This included personally viewing all current laboratories and imaging studies, medication reconciliation, outpatient chart review, and discussion with specialists. Admission and Anticipated Discharge Date Admission Date: July 07, 2024 Subjective No acute events overnight. He is hopeful to go home today. Denies f/c/s, chest pain, sob, n/v/d. Tolerating diet and ambulating around unit. He did stairs with PT. He has not yet moved his bowels but is passing gas. Review of Systems Review of Systems: All systems reviewed & are unremarkable except as noted in HPI & below Physical Exam Physical Exam: Gen: WD/WN, obese, M, NAD, A&O x3 HEENT: Normocephalic, atraumatic, conjunctivae moist, sclerae anicteric, mucous membranes moist. Lung: Clear to Auscultation bilaterally, no wheezes/rales/rhonchi Heart: Regular rate, regular rhythm, no murmurs, rubs, or gallops Abdomen: Soft, NT, ND +BS x 4 Extremities: No edema, lumbar dressing CDI, FRANCO drain with sersosang drainage Skin: Warm, no rash, negative turgor. Results & Data Results & Data Vital Signs (Past 12 Hours) Vital Signs Temp Pulse Resp BP Pulse Ox O2 Del Method 07/10/24 07:27 36.8 C 111 H 16 117/75 97 Room Air Laboratory Results Short CBC 07/10/24 Range/Units 05:54 WBC 13.17 H (4.8-10.8) K/ul Hgb 10.7 L (14.0-18.0) g/dl Hct 33.5 L (42.0-52.0) % Plt Count 185 (130-400) K/uL Medications Administered Current Inpatient Medications Al Hydrox/Mg Hydrox/Simethicone (Aluminum/Magnesium Susp 30 Ml Udc) 30 ml PO Q6H PRN PRN Reason: Dyspepsia Stop: 08/06/24 16:45 Albuterol (Albuterol Hfa 8 Gm Inhaler) 2 puffs INH QID PRN PRN Reason: sob Stop: 08/06/24 16:45 Amiodarone HCl (Amiodarone 200 Mg Tab) 100 mg PO QAM [place] Stop: 08/07/24 08:59 Last Admin: 07/10/24 08:22 Dose: 100 mg Atorvastatin Calcium (Atorvastatin 40 Mg Tab) 40 mg PO HS ITALIA Stop: 08/06/24 20:59 Last Admin: 07/09/24 21:06 Dose: 40 mg Bisacodyl (Bisacodyl 10 Mg Supp) 10 mg RI DAILY PRN PRN Reason: Constipation Stop: 08/06/24 16:45 Dextrose (Dextrose 50% 50 Ml Syringe) 25 - 50 ml IV UD PRN; Protocol PRN Reason: Hypoglycemia Protocol Stop: 08/06/24 17:53 Diphenhydramine HCl (Diphenhydramine Capsule 25 Mg Cap) 25 mg PO Q6H PRN PRN Reason: Allergic Rhinitis/Insomnia Stop: 08/06/24 16:45 Famotidine (Famotidine 20 Mg Tab) 20 mg PO Q12H PRN PRN Reason: Dyspepsia Stop: 08/06/24 16:45 Last Admin: 07/09/24 12:22 Dose: 20 mg Furosemide (Furosemide 20 Mg Tab) 20 mg PO BID PRN PRN Reason: swelling Stop: 08/06/24 16:45 Last Admin: 07/10/24 08:23 Dose: 20 mg Furosemide (Furosemide 40 Mg Tab) 40 mg PO QAM [place] Stop: 08/08/24 08:59 Last Admin: 07/10/24 08:22 Dose: 40 mg Glucagon (Glucagon For Inj 1 Mg Vial) 1 mg SQ UD PRN; Protocol PRN Reason: Hypoglycemia Protocol Stop: 08/06/24 17:53 Glucose (Glucose 40% Gel 15 Gm Tube) 15 - 30 gm PO UD PRN; Protocol PRN Reason: Hypoglycemia Protocol Stop: 08/06/24 17:53 Glucose (Glucose 10 Tab/Tube) 4 - 8 tab PO UD PRN; Protocol PRN Reason: Hypoglycemia Treatment Stop: 08/06/24 17:53 Hydromorphone HCl (Hydromorphone Inj 0.5 Mg/0.5 Ml Syr) 0.5 mg IV Q3H PRN PRN Reason: MODERATE Pain (Scale 4,5,6) & Pre PT Stop: 07/21/24 16:45 Last Admin: 07/10/24 10:53 Dose: 0.5 mg Hydromorphone HCl (Hydromorphone Inj 1 Mg/Ml Syringe) 1 mg IV Q3H PRN PRN Reason: SEVERE Pain (Scale 7,8,9,10) Stop: 07/21/24 16:45 Last Admin: 07/10/24 04:40 Dose: 1 mg Hydroxyzine HCl (Hydroxyzine Hcl 25 Mg Tab) 25 mg PO Q8H PRN PRN Reason: Anxiety Stop: 08/06/24 16:45 Promethazine HCl (Phenergan) 12.5 mg in 50.5 mls @ 202 mls/hr IV Q6H PRN PRN Reason: Nausea And Vomiting Stop: 08/06/24 16:45 Influenza Virus Vaccine Quadrival (Do Not Administer Flu Vaccine) 1 each N/A PRN PRN PRN Reason: Notification Stop: 08/06/24 16:45 Insulin Aspart (Insulin Aspart Per Unit Charge) 0 units SC ACHS ITALIA Stop: 08/06/24 20:59 Last Admin: 07/10/24 08:21 Dose: 9 units Lorazepam (Lorazepam 0.5 Mg Tab) 0.5 mg PO Q8H PRN PRN Reason: Sedation/Anxiety Stop: 08/06/24 16:45 Last Admin: 07/09/24 02:22 Dose: 0.5 mg Lorazepam (Lorazepam 2 Mg/1 Ml Vial) 0.5 mg IV Q8H PRN PRN Reason: Sedation/Anxiety Stop: 08/06/24 16:45 Magnesium Hydroxide (Magnesium Hydroxide Susp 30 Ml Udc) 30 ml PO Q24H PRN PRN Reason: Constipation Stop: 08/06/24 16:45 Metoclopramide HCl (Metoclopramide Hcl Inj 5 Mg/Ml 2 Ml Vial) 10 mg IV Q6H PRN PRN Reason: Nausea &/or Vomiting Stop: 08/06/24 16:45 Metoprolol Tartrate (Metoprolol Tartrate 25 Mg Tab) 25 mg PO QAM ITALIA Stop: 08/07/24 08:59 Last Admin: 07/10/24 08:22 Dose: 25 mg Miscellaneous (Carbohydrates For Hypoglycemia ) 15 - 30 gm PO UD PRN PRN Reason: Hypoglycemia Protocol Stop: 08/06/24 17:53 Miscellaneous Information (Pharmacy Glycemic Mgmt Consult) 1 each N/A UD PRN PRN Reason: Consult Stop: 08/06/24 17:53 Naloxone HCl (Naloxone Hcl 0.4 Mg/1 Ml Vial/Carp) 0.1 mg IV Q5M PRN PRN Reason: Oversedation/Resp depression Stop: 08/06/24 16:45 Ondansetron HCl (Ondansetron Inj 2 Mg/Ml 2 Ml Vial) 4 mg IV Q6H PRN PRN Reason: Nausea &/or Vomiting Stop: 08/06/24 16:45 Ondansetron HCl (Ondansetron 4 Mg Od Tab) 4 mg PO Q6H PRN PRN Reason: Nausea Stop: 08/06/24 16:45 Oxycodone HCl (Oxycodone Hcl Ir 5 Mg Tab (Immediate Release)) 5 - 10 mg PO Q4H PRN PRN Reason: Pain & Pre PT Stop: 07/21/24 16:45 Last Admin: 07/10/24 03:40 Dose: 10 mg Oxycodone HCl (Oxycodone Hcl 20 Mg Tabcr (Oxycontin)) 20 mg PO Q12H [place] Stop: 07/22/24 09:59 Last Admin: 07/10/24 09:22 Dose: 20 mg Pneumococcal Polyvalent Vaccine (Do Not Administer Pneumococcal Vaccine) 1 each N/A PRN PRN PRN Reason: Notification Stop: 08/06/24 16:45 Polyethylene Glycol (Polyethylene (Miralax) 17 Gm Pack) 17 gm PO Q6 [facility] Stop: 08/07/24 05:59 Last Admin: 07/10/24 05:30 Dose: 17 gm Sacubitril/Valsartan (Valsartan/Sacubitril 26/24mg Tab) 1 tab PO BID [facility] Stop: 08/06/24 20:59 Last Admin: 07/10/24 08:22 Dose: 1 tab Senna/Docusate Sodium (Docusate Sodium/Senna 50/8.6mg Tab) 2 tab PO HS [facility] Stop: 08/06/24 20:59 Last Admin: 07/09/24 21:05 Dose: 2 tab Sodium Biphosphate/Sodium Phosphate (Sod Phosphate/Sod Biphosphate Enema 132 Ml Btl) 132 ml RI ONE PRN PRN Reason: Constipation Stop: 08/06/24 16:45 Tamsulosin HCl (Tamsulosin Hcl 0.4 Mg Cap) 0.4 mg PO HS [facility] Stop: 08/06/24 20:59 Last Admin: 07/09/24 21:06 Dose: 0.4 mg
--- NOTE | 2024-07-10 11:33 | Discharge Summary ---
Date of Service July 10, 2024 Admission HPI Per Admitting Provider This is a 69-year-old male presents for chronic persistent back and bilateral leg pain after failing course of nonoperative care is here for surgical invention. Principal Diagnosis Lumbar spinal stenosis with neurogenic claudication Discharge Data Allergies Allergy/AdvReac Type Severity Reaction Status Date / Time acetaminophen [From Tylenol] Allergy Unknown Rash Verified 07/07/24 08:44 morphine Allergy Unknown Rash Verified 07/07/24 08:44 Consultations 07/07/24 16:46 Consult Hospitalist Routine Procedures Performed Operation Date: 07/07/24 10:05 Actual Procedures p L2-S1 Revision Decompression and Fusion(Not Applicable) - Kenneth Melara DO Ordered Studies 07/07/24 10:05 FL lumbar spine 2-3V Routine Hospital Course (1) Neurogenic claudication due to lumbar spinal stenosis: Patient underwent multilevel lumbar depression fusion tolerated this well was taken to the orthopedic for postoperative. Postop he progressed appropriately. Pain well-controlled. Excellent strength testing. Subsequent discharge home. Discharge orders instructions from the chart for further review. Total Time Total Time Spent Total Time Spent (In Minutes): 20 minutes Discharge Plan Discharge Items Patient Disposition: Home - Self-Care Reason For Visit: Lumbar Spondylosis, Lumbar Radiculopathy, Spinal Discharge Diagnosis: Lumbar spinal stenosis with neurogenic claudication Activity: As commented below Non-emergency contact: Primary Care Provider Call non-emergency contact if: you have any medication questions Follow-up/Referrals: Karly Garg DO [Primary Care Provider] - Diet: Regular Addtl Attending Provider Instructions: ACTIVITY RECOMMENDATIONS: SELF CARE INSTRUCTIONS AFTER THORACIC/LUMBAR FUSIONS 1. You may walk to your tolerance. It is good exercise for your legs and back. Expect some back and intermittent leg aches and pains. 2. You may perform "counter-top" level activities (make a sandwich, godfrey with a project, etc.). 3. No bending or lifting of more than 10 pounds or back twisting of any nature (roll like a log when turning in bed). 4. You may ride in a car for 20-30 minutes at a time. No driving until after your first visit with your doctor. 5. Frequent changes of position and restricting sitting to 30 minutes at a time will help limit the amount of back spasms and stiffness you may experience. 6. You may discontinue the use of ambulatory aids (cane, crutches, etc.) once your strength and confidence allow. 7. You may steel erecting pusher the shower and let water strike your incision when you arrive home at least once daily. Do not take a tub bath, sit in a hot tub or go into a swimming pool until after your first recheck in the office. SPECIAL CARE INSTRUCTIONS: VERY IMPORTANT TO READ AND REVIEW A. Your surgical incision has been closed with a cosmetic suture under the skin that will dissolve in about 6 weeks. In 14 days, you can use a pair of clean scissors and cut the suture that is left outside of the skin at the ends of your incision. 1. The small skin tapes can be removed 7 days after surgery if they have not fallen off by that point. 2. You may keep the wound open to air as much as possible to promote healing after post-op day number 5 unless told otherwise by your doctor. 3. If you think the wound looks like it is becoming infected (redness or worsening drainage) and/or you are experiencing fever, chill or worsening back pain and muscle spasms, contact the office so that we may evaluate you as soon as possible. B. Complications are uncommon, but please contact us if you have any signs or symptoms of: 1. wound infection (fever higher than 102.5 degrees F, redness, separation of wound, drainage, or increasing pain from the incision) 2. blood clots in legs (pain, swelling, redness and warmth in legs) 3. urinary tract infection (fever higher than 102.5 degrees F, burning upon urination or increased frequency of urination) 4. nerve problems (inability to walk on your toes or heels, numbness, loss of bowel or bladder control) 5. any other symptoms that concern you C. Please call the office at if you have any concerns or questio ns about your operation or recovery. D. No smoking! Smoking drastically decreases the chance of a solid fusion. E. Do not take any anti-inflammatory medications (Indocin, Advil, Motrin, Aspirin, Naprosyn, etc.) as these may inhibit the chance of a solid fusion. Tylenol is okay to take for pain. MANAGING PAIN AFTER SPINAL SURGERY 1. Narcotic medication is intended for short-term use and will be provided for surgical pain. Surgical pain usually lasts for a period of 4-6 weeks. Narcotic medication includes Percocet, Vicodin, Darvocet, Tylenol #3 or Lortab. 2. Longer-term pain is more appropriately treated with non-narcotic medication such as Tylenol ES. 3. Muscle spasm is not appropriately treated with narcotics. Muscle relaxers such as Soma, Flexeril or Skelaxin can be used along with Tylenol ES. 4. Remember that we all live with some "aches and pains". This is not unusual or uncommon after an injury or as we get older. a. Back pain is expected and may include muscle spasms for 4 to 6 weeks after surgery. The pain should gradually improve. If the pain worsens for no apparent reason, please contact the office. b. Intermittent leg pain may also be experienced and should not be concerned about unless it worsens for no apparent reason. If so, please contact the office. 5. We will provide appropriate medication within the normal guidelines of their prescribed use. We will also be very cautious and aware of potential abuse and extended duration of patients' medication needs. a. Pain medications are for your comfort and to assist with sleep and rest so that the tissue can heal. They are not provided in order to return to normal activity and should not be used through the day. To do so or worsening pain at night can result from ongoing tissue damage and development of tolerance to the prescribed medicine. 6. Please allow 2-3 days to process refills. Prescriptions will not be mailed but must be picked up at the office. FOLLOW UP VISIT: Keep your scheduled follow-up appointment. Any questions, please call the office at . Pending Studies at Discharge: No Stand-Alone Forms: [facility], Sm[facility] Cessation Medications and DC Order Prescriptions: New oxycodone [OxyContin] 20 mg tablet,oral only,ext.rel.12 hr 20 mg PO BID Qty: 30 0RF Continued atorvastatin 40 mg Tablet 40 mg PO HS oxycodone 15 mg Tablet 15 mg PO QID PRN (Reason: Pain) tamsulosin 0.4 mg Capsule 0.4 mg PO HS furosemide 20 mg Tablet 40 mg PO DAILY potassium 20 mg Tablet,Chewable 20 mg PO DAILY amiodarone 100 mg Tablet 100 mg PO QAM metoprolol tartrate 25 mg Tablet 25 mg PO QAM dapagliflozin propanediol [Farxiga] 10 mg Tablet 10 mg PO QAM Movantik 25 mg Tablet 25 mg PO QAM Rx Instructions: must be taken on empty stomach; no food 1 hr after or 2-3 hrs before dose Entresto 24-26 mg Tablet 1 tab PO BID albuterol sulfate [Ventolin HFA] 90 mcg/actuation Hfa Aerosol Inhaler 2 puff INHALATION QID PRN (Reason: sob) Held Eliquis 5 mg Tablet 5 mg PO BID Hold Instructions: Resume on 07/12/24. Discharge Orders: Discharge Order (Routine); Ordered 07/10/24 Ordered By: Kenneth Salcido/Other Patient Handouts: Managing Type 2 Diabetes Admission Data Admit Date/Time: 07/07/24 14:37 Attending Provider: Kenneth Melara Admit Provider: Kenneth Melara Primary Care Provider: Karly Garg Other Providers: Nikki Frederick; Angel Greene
== END 2024-07-10 13:24 | disposition home or self-care (01) | DRG 454 ==
LOC: ASU 08:07 → 3E 14:37